=== PATIENT | female | born 1985 | race African-American/Black ===

== ENCOUNTER 2017-01-10 08:53 | Emergency (ER) | payer BC ==
[2017-01-10] MEDS ORDERED: IBUPROFEN 800 MG TABLET PO ONE (09:26)
--- NOTE | 2017-01-10 10:05 | ER Document Report ---
HPI - HPI Patient complains to provider of: sore throat Onset: Other - 3 weeks Onset/Duration: Waxing and waning Quality of pain: Achy Pain Level: 4 Context: Patient complains of sore throat off and on for the past 3 weeks. Patient does complain of sinus congestion and occasional sneezing. Associated Symptoms: Rhinnorhea, Sinus pain/drainage, Sore throat. denies: Nonproductive cough, Productive cough, Fever Exacerbated by: Denies Relieved by: Denies Similar symptoms previously: Yes Recently seen / treated by doctor: No - ROS ROS below otherwise negative: Yes Systems Reviewed and Negative: Yes All other systems reviewed and negative - CONSTITUTIONAL Constitutional: DENIES: Fever, Chills - EENT EENT: REPORTS: Nasal Drainage-Clear, Congestion - RESPIRATORY Respiratory: DENIES: Trouble Breathing, Coughing - GASTROINTESTINAL Gastrointestinal: DENIES: Nausea, Patient vomiting - REPRODUCTIVE Reproductive: DENIES: : - MUSCULOSKELETAL Musculoskeletal: DENIES: Extremity pain - DERM Skin Color: Normal Skin Problems: None Past Medical History - General Information source: Patient - Social History Smoking Status: Current Every Day Smoker Frequency of alcohol use: Social Drug Abuse: None Occupation: [employer] Family History: Reviewed & Not Pertinent Patient has suicidal ideation: No Patient has homicidal ideation: No - Medical History Medical History: Negative Neurological Medical History: Denies: Hx Migraine Renal/ Medical History: Denies: Hx Peritoneal Dialysis Past Surgical History: Reports: Hx Gynecologic Surgery - leep - Immunizations Immunizations up to date: Yes Hx Diphtheria, Pertussis, Tetanus Vaccination: Yes Vertical Provider Document - CONSTITUTIONAL Agree With Documented VS: Yes Exam Limitations: No Limitations General Appearance: WD/WN, No Apparent Distress - INFECTION CONTROL TRAVEL OUTSIDE OF THE [place] IN LAST 30 DAYS: No - HEENT HEENT: Atraumatic, Normocephalic, Pharyngeal Tenderness, Pharyngeal Erythema. negative: Pharyngeal Exudate - NECK Neck: Normal Inspection, Supple. negative: Lymphadenopathy-Left, Lymphadenopathy-Right - RESPIRATORY Respiratory: Breath Sounds Normal, No Respiratory Distress, Chest Non-Tender O2 Sat by Pulse Oximetry: 97 - CARDIOVASCULAR Cardiovascular: Regular Rate, Regular Rhythm, No Murmur - BACK Back: Normal Inspection - MUSCULOSKELETAL/EXTREMETIES Musculoskeletal/Extremeties: LISETH FLORES - NEURO Level of Consciousness: Awake, Alert, Appropriate - DERM Integumentary: Warm, Dry, No Rash Course - Vital Signs Vital signs: Temp Pulse Resp BP Pulse Ox 99.1 F 91 16 142/92 H 97 01/10/17 08:57 01/10/17 08:57 01/10/17 08:57 01/10/17 08:57 01/10/17 08:57 - Laboratory Laboratory results interpreted by me: 01/10/17 10:01 Labs- Entire Visit 01/10/17 09:25 Group A Strep Rapid NEGATIVE Discharge - Discharge Clinical Impression: Sore throat (viral), Nasal congestion, Elevated blood pressure reading Condition: Stable Disposition: HOME, SELF-CARE Instructions: Nasal Corticosteroid Inhaler ([facility]), OTC Antihistamines ([facility]), Sore Throat ([facility]), Family Physicians / Practices Additional Instructions: Return immediately for any new or worsening symptoms Followup with your primary care provider, call tomorrow to make a followup appointment Throat culture is pending, we will call if you need any different treatment Use [id number] antihistamine such as Zyrtec as directed to help with sinus congestion symptoms Your blood pressure was elevated today, recheck with her primary doctor in 2 days to have this evaluated Prescriptions: Fluticasone Propionate [Flonase Nasal [place] 50 Mcg/[place] 16 gm] 2 spray NASL DAILY #1 bottle Naproxen [Naprosyn 250 Nmg Tablet] 1 tab PO BID #14 tablet Forms: Elevated Blood Pressure, Return to Work Referrals: [facility] [Provider Group] - Follow up as needed
[2017-01-10 10:30] VITALS: BP 139/89
== END 2017-01-10 10:23 | disposition home or self-care (01) ==
LOC: ER 08:53
DX: J02.8 Acute pharyngitis due to other specified organisms (principal); B97.89 Other viral agents as the cause of diseases classified elsewhere; R06.7 Sneezing; R09.81 Nasal congestion; J34.89 Other specified disorders of nose and nasal sinuses; R03.0 Elevated blood-pressure reading, without diagnosis of hypertension; F17.200 Nicotine dependence, unspecified, uncomplicated
CPT/HCPCS: 87070; 87077; 87880; 99283

== ENCOUNTER → 2017-11-06 | Outpatient (CLI) | payer BC | LOC: LAB 13:27 | PROVIDERS: ATTEND Emergency Medicine | DX: J03.90 Acute tonsillitis, unspecified (principal) | CPT/HCPCS: 36415; 86308; 87070; 87077 ==